=== PATIENT | male | born 1980 | race Caucasian/White ===

== ENCOUNTER 2021-05-02 16:01 | Emergency (ER) | payer BC ==
[2021-05-02] MEDS ORDERED: Cyclobenzaprine 10 MG TAB ONE (16:26)
== END 2021-05-02 17:00 | disposition home or self-care (01) ==
LOC: BURERS 16:01
DX: M62.838 Other muscle spasm (principal); I42.9 Cardiomyopathy, unspecified
CPT/HCPCS: 99283